=== PATIENT | male | born 1960 | race Caucasian/White ===

== ENCOUNTER 2021-01-09 23:38 | Emergency (ER) | payer SELFPAY ==
[2021-01-10 01:02] VITALS: BP 138/57; PULSE 58; RESP 18; TEMP 36.8; O2SAT 98; BMI 22.4
--- NOTE | 2021-01-10 02:09 | W.ED.EYEPROB ---
HPI - Eye Problem General: Chief complaint: Eye Problems Stated complaint: Object in Rt eye Time Seen by Provider: 01/10/21 02:08 History of Present Illness: HPI Narrative: Patient is a 60-year-old male comes to the ED with right eye complaint. Patient says yesterday he was using a wood card setter and a piece of wood got in his right eye. Patient then irrigated his right eye out with water yesterday. Patient reports still having some discomfort in his right eye. He reports some mild pain at times but here in the ED he says his pain is minimal does not need anything for pain. Denies any vision changes. Patient is up-to-date on his tetanus. Associated symptoms: Denies fever(s), headache(s), nausea, neck pain or vomiting Review of Systems Const: Denies: fever(s), chills or fatigue Eyes: Reports: eye discomfort (right eye); Denies: change in vision ENMT: Denies: throat pain, odynophagia, nasal discharge or nasal congestion Card: Denies: chest pain, palpitations, edema, swelling of feet/ankles, dyspnea on exertion or orthopnea Resp: Denies: dyspnea, productive cough or non-productive cough GI: Denies: abdominal pain, nausea, vomiting, diarrhea, constipation or hematochezia : Denies: flank pain, difficulty urinating, dysuria or hematuria Musc: Denies: neck pain, back pain or extremity swelling Skin/Breast: Denies: rash or new lesions Neuro: Denies: headache(s), numbness in extremities or weakness in extremities Physical Exam Const: COMMON NORMALS: no acute distress, patient oriented x3, healthy appearing and alert GENERAL APPEARANCE: cooperative and comfortable HENMT: COMMON NORMALS: normocephalic HEAD & SCALP: normocephalic MOUTH: Normal oral and palatal mucosa present THROAT: posterior oropharynx normal and uvula midline Eye: COMMON NORMALS: Equal, round and reactive pupils present and EOMs intact bilaterally PERIORBITAL: periorbital findings normal EYELID: eyelids normal CONJUNCTIVA: Yes conjunctival abnormal positive right conjunctival injection diffuse CORNEA: Yes fluorescein used (Corneal abrasion seen after lamp exam with fluorescein) PUPIL: Yes Equal, round and reactive pupils present SLIT LAMP EXAM: Yes cornea (Corneal abrasion seen) OTHER: No foreign body seen in right eye. Neck/C-Spine: COMMON NORMALS: supple GENERAL: Yes normal visual inspection Resp: COMMON NORMALS: normal respiratory effort, No retractions, No use of accessory muscles and clear to auscultation bilaterally AUSCULTATION: clear to auscultation bilaterally Cardio: COMMON NORMALS: regular rate, regular rhythm, S1 normal heart sound present, S2 normal heart sound present, No gallops present (Cardio), No clicks present (Cardio), No murmurs present (Cardio) and Peripheral pulses 2+ throughout RATE: regular rate RHYTHM: regular rhythm HEART SOUNDS: S1 normal heart sound present and S2 normal heart sound present PERIPHERAL PULSES: Peripheral pulses 2+ throughout GI: COMMON NORMALS: Normal to inspection, nondistended, normoactive bowel sounds present, Soft to palpation, non-tender and no masses PALPATION: Yes Soft to palpation : COMMON NORMALS: Yes no CVA tenderness BLADDER/KIDNEY EXAM: Yes no CVA tenderness Back/Pelvis: COMMON NORMALS: no CVA tenderness Extremity: COMMON NORMALS: normal to inspection Neuro: COMMON NORMALS: patient oriented x3 and moves all extremities SENSORIUM/ORIENTATION: Yes alert Skin: GENERAL SKIN EXAM: dry skin Course Vital Signs: Vital signs: Vital Signs Temperature 98.2 F 01/10/21 01:02 Pulse Rate 58 L 01/10/21 02:41 Respiratory Rate 18 01/10/21 02:41 Blood Pressure 133/90 01/10/21 02:41 Pulse Oximetry 96 01/10/21 02:41 MDM - Eye Problem MDM Narrative: Medical decision making narrative: Patient is a 60-year-old male comes to the ED with right eye complaint. Patient had wood chip to get in right eye yesterday. He rinsed out his right eye yesterday, but today still having some discomfort. Denies any vision changes. Exam of right eye shows some right conjunctival injection that is diffuse. No foreign body seen in eye and eyelids are normal. Fluorescein exam done and it showed corneal abrasion right eye. Patient's right eye was irrigated extensively with Eye-Stream as well. Erythromycin eye ointment was placed on right eye here in the ED. Patient diagnosed with corneal abrasion and discharged home with a prescription for erythromycin eye ointment. He was told to contact Dr. Mumtaz hester tomorrow morning to set up an appoint with them for further evaluation. He was given all the contact information for Mumtaz hester. Return to ED precautions given. Patient understood and agree with plan. Discharge Plan Discharge Patient Disposition: Home Clinical Impression: Corneal abrasion Qualifiers: Encounter type: initial encounter Laterality: right Qualified Code(s): S05.01XA - Injury of conjunctiva and corneal abrasion without foreign body, right eye, initial encounter Condition: Stable Prescriptions: New erythromycin 5 mg/gram (0.5 %) ointment 1 applic ophthalmic (eye) Q6H 5 Days Qty: 3.5 RF: 0 Discharge Orders: Discharge ED (Routine); Ordered 01/10/21 Ordered By: Peyman Boles Discharge Diet: Regular Discharge Activity: Resume usual activity Patient Instructions: Corneal Abrasion (DC) Activity Restrictions/Additional Instructions: Follow-up with medical provider as directed. [facility] tomorrow morning phone number is [phone]. Address is [address] [place]. take medications as prescribed. Return to the ER or your medical provider if condition worsens and unable to be seen by In the next 48 hours. Please read and understand discharge instructions. If any questions, please ask. Coding Level of Care Code ED Leaf Conditioner for Db Fwd Exam Comprehensive
[2021-01-10 02:41] VITALS: BP 133/90; PULSE 58; RESP 18; O2SAT 96
[2021-01-10] MEDS: fluorescein 1 mg Strip EYE-RIGHT (02:51)
[2021-01-10] MEDS: tetracaine 0.5% Op Soln 4 mL Btl 1 DROP EYE-RIGHT (02:52)
== END 2021-01-10 03:18 | disposition home or self-care (01) ==
PROVIDERS: Emergency Provider Physician Assistant
DX: S05.01XA Injury of conjunctiva and corneal abrasion without foreign body, right eye, initial encounter (principal); X58.XXXA Exposure to other specified factors, initial encounter
CPT/HCPCS: 99283